=== PATIENT | male | born 1980 | race Caucasian/White ===

== ENCOUNTER 2021-02-08 08:28 | Emergency (ER) | payer BC, SELFPAY ==
--- NOTE | ~2021-02-08 | CT_ITS ---
EXAMINATION: CT brain wo con DATE: 02/08/2021 10:03 INDICATION: Dizziness. Persistent vertigo. Frontal and temporal headaches TECHNIQUE: Computed tomography (CT) of the head was performed without intravenous contrast. The mA wa s adjusted according to patient size. Iterative reconstruction technique was employed. Exam dose: 60 5.33 mGy-cm total exam DLP. COMPARISON: None FINDINGS: No intracranial mass lesion or hemorrhage or cerebrovascular accident. No midline shift or mass effect effect. Normal ventricular size. Normal ash-white matter differentiation. There is sligh t left basal ganglia calcification. No subdural or epidural hematoma. No fracture or bone destruction of the cranial vault. The mastoid air cells and included paranasal si nuses are normally developed and aerated. IMPRESSION: No significant abnormality Reviewed, dictated and finalized at [facility] Reviewed, dictated and finalized at [facility] IMPRESSION: No significant abnormality
[2021-02-08 08:35] VITALS: BP 144/94; PULSE 69; RESP 18; TEMP 37.1; O2SAT 98
--- NOTE | 2021-02-08 11:02 | ED.DIZZY ---
HPI - Dizziness General Chief Complaint: Dizziness Stated Complaint: vertigo Time Seen by Provider: 02/08/21 08:54 Source: patient Mode of arrival: ambulatory Limitations: no limitations History of Present Illness HPI Narrative: 40-year-old male Here because of dizziness Patient states that his symptoms began about 4 weeks ago, and he does not recall any inciting event or illness, there has not been any injury Generally speaking he has a very pronounced spinning and vertiginous picture which is exacerbated by some movements and by changing positions He does not have any hearing loss, double vision, or other neurologic symptoms He does occasionally have some bitemporal headaches and some occipital neck pain He has seen his primary care physician about this a couple of times The first time he had cerumen removed from both ears, and reports that it did alleviate his symptoms somewhat initially He also reported that when his ears were irrigated they made the symptoms very much worse and more intense He also saw a chiropractor who did some kind of manipulations and tried canalith repositioning maneuvers with him but that has not helped either On a second visit to his primary he was given meclizine, likewise has been ineffective, and is waiting on a referral, sounds like to ENT which he is somewhat dismayed and did not happen 2 weeks earlier Review of Systems Review of Systems: All systems reviewed & are unremarkable except as noted in HPI and below Constitutional: Constitutional: Reports no additional constitutional complaints, Denies chills, Denies fever(s) and Denies headache(s) Eyes: Eyes: Reports no additional eye complaints and Denies change in vision ENT: Reports vertigo, Denies headache(s), Reports nasal congestion and Denies sore throat Cardiovascular: Cardiovascular: Denies dyspnea Gastrointestinal: Gastrointestinal: Reports nausea Musculoskeletal: Musculoskeletal: Reports back pain, Denies deformity, Denies arthralgias, Denies joint swelling and Denies numbness Integumentary/Breasts: Skin/Breast: Denies rash and Denies wounds Neurologic: Reports vertigo, Reports dizziness, Reports headache(s), Denies focal weakness and Denies numbness Psychiatric: Psychiatric: Reports no additional psychiatric complaints Endocrine: Endocrine: Reports no additional endocrine complaints Hematologic/Lymphatic: Hematologic/Lymphatic: Reports no additional hematologic/lymphatic complaints Allergic/Immunologic: Allergic/Immunologic: Reports no additional allergic/immunologic complaints Exam Const: General: cooperative, healthy appearing, no acute distress and alert Orientation/consciousness: patient oriented x3 (alert) HENMT: Head: normal to inspection, normocephalic and atraumatic Ears: external ears normal and TM's normal bilaterally General nose exam: no epistaxis Face and sinus: sinuses nontender Other: Both TMs are normal, and hearing acuity is grossly normal as well Eyes: Conjunctivae: conjunctivae normal Pupils: Equal, round and reactive pupils present EOM: EOMs intact bilaterally Other: No nystagmus and no skew Neck: Neck: normal visual inspection, no lymphadenopathy, no meningeal signs, supple and no JVD Other: Full range of motion, no midline tenderness Resp: Effort & Inspection: normal respiratory effort and not labored Auscultation: other (BS =) Skin: General skin exam: normal color and no rashes or lesions noted Neuro: General: patient oriented x3 (alert), moves all extremities and no focal motor deficits Cranial nerves: Yes Nystagmus not present Speech: normal speech and Abnormal speech present Gait exam (Neuro): Normal gait present Course Course Emergency Course: Discussed with patient, process to date seems very reasonable, we can do a head CT scan to exclude any gross issue, trial him on a Medrol Dosepak which is a therapy that he has tolerated before without objectionable side effects, and we can re
[2021-02-08 11:20] VITALS: BP 122/85; PULSE 60; RESP 16; O2SAT 98
== END 2021-02-08 11:21 | disposition home or self-care (01) ==
PROVIDERS: Emergency Provider Emergency Medicine; PCP Internal Medicine
DX: R42 Dizziness and giddiness (principal)
CPT/HCPCS: 70450; 99284

== ENCOUNTER 2021-02-15 13:28 | Emergency (ER) | payer BC, SELFPAY ==
[2021-02-15 13:34] VITALS: BP 136/98; PULSE 68; RESP 14; TEMP 36.8; O2SAT 99
--- NOTE | 2021-02-15 14:14 | ECG_ITS ---
Measurements Intervals [place] Rate: 76 P: 43 SC: 144 QRS: 11 QRSD: 91 T: 12 QT: 366 QTc: 412 Interpretive Statements SINUS RHYTHM BORDERLINE R WAVE PROGRESSION, ANTERIOR LEADS BASELINE ARTIFACT- I, III, AVR, AVL, AVF BORDERLINE ECG Electronically Signed On 02-15-2021 17:50:10 CDT by Sergey Amezquita D.O.
[2021-02-15] MEDS: SODIUM CHLORIDE 0.9% IV 1,000 ML 999 ML IV CONT (14:31)
--- NOTE | 2021-02-15 14:40 | ED.DIZZY ---
HPI - Dizziness General Chief Complaint: Dizziness Stated Complaint: dizziness Time Seen by Provider: 02/15/21 13:45 Source: patient History of Present Illness HPI Narrative: Patient reports he has had intermittent dizziness for years however over the past 4 weeks symptoms have worsened. Reports over the past 4 weeks he has had a frontal and occipital headache which he has not been able to alleviate. Over the past week or so he is also noted dizziness described as feeling off balance and feels like the room is spinning. Today he feels like his symptoms are worse and is feeling he is going to pass out. He is currently being evaluated by ENT and was referred to vertigo testing which will be performed on Wednesday. He was also referred to a neurology to be evaluated for migraines with an appointment next week. Previously been seen in this ER for the symptoms. A CT scan and it was negative. Patient relates that he is very worried about his symptoms and does not know what to do. He denies fevers he denies focal weakness he denies cough, congestion, nausea, vomiting, chest pain Related Data Allergies Allergy/AdvReac Type Severity Reaction Status Date / Time ibuprofen Allergy Blister Verified 02/15/21 13:42 Review of Systems Review of Systems: CONSTITUTIONAL: Denies fever, chills, or sweats. EYES: Denies visual changes, redness, or discharge. ENT: Denies rhinorrhea, congestion, sore throat, or otalgia. CARDIOVASCULAR: Denies chest pain, palpitations, or edema. RESPIRATORY: Denies cough or dyspnea. GASTROINTESTINAL: Denies abdominal pain, nausea, vomiting, or diarrhea. GENITOURINARY: Denies dysuria or hematuria. SKIN: Denies rash or itching. MUSCULOSKELETAL: Denies back pain, joint pain, or myalgia. NEUROLOGIC: Reports headache and vertigo PSYCHIATRIC: Denies anxiety or depression. All systems reviewed & are unremarkable except as noted in HPI and below Exam Narrative: GENERAL: Well-appearing, well-nourished, and in no acute distress. HEAD: Normocephalic, atraumatic. EYES: PERRLA and EOMI. ENT: Nares clear, no rhinorrhea or epistaxis. Mucous membranes moist. TMs clear bilaterally EACs clear bilaterally NECK: Supple. No masses. No JVD CHEST: Clear to auscultation. No respiratory distress. No wheezes rales or rhonchi HEART: Regular rate and rhythm. No murmur heard. Normal peripheral pulses. ABDOMEN: Soft, nontender, nondistended, normal active bowel sounds. EXTREMITIES: Normal range of motion. No edema. SKIN: Warm, dry, no rash. NEURO: Cranial nerves II through XII are intact patient ambulates without difficulty no dysdiadochokinesia alert and oriented x3. PSYCH: Normal mood and affect. Course Reevaluation(s) Reevaluation #1: Patient reports feeling much improved ambulates without difficulty results and plan reviewed with patient. Patient comfortable continuing his work-up as an outpatient. Date: 02/15/21 Time: 16:07 Vital Signs Vital signs: Vital Signs Temperature 36.8 C 02/15/21 13:34 Pulse Rate 68 02/15/21 13:34 Respiratory Rate 14 02/15/21 13:34 Blood Pressure 136/98 H 02/15/21 13:34 Pulse Oximetry 99 02/15/21 13:34 Temperature 36.8 C 02/15/21 13:34 Pulse Rate 84 02/15/21 16:24 Respiratory Rate 17 02/15/21 16:24 Blood Pressure 121/67 02/15/21 16:24 Pulse Oximetry 98 02/15/21 16:24 MDM - Dizziness MDM Narrative Medical decision making narrative: H&P as above, vss, pt looks clinically well, exam without focal neurological deficits, labs clinically unremarkable, prior imaging reviewed and unremarkable, EKG clinically unremarkable, additional labs/img considered, symptomatic relief available as needed, on reevaluation pt continues to looks clinically well reports large improvement in symptoms. Suspect peripheral vertigo versus atypical migraines, dns CVA, ACS, arrhythmia, severe sepsis, electrolyte abnormality. plan to tx/monitor as op w/ pcm f/u findings/plan discussed with pt, pt agree/comfor
[2021-02-15 14:45] LABS: Basophils Absolute Auto 0.1 K/mm3 (0.0-0.1); Basophils Percent Auto 0.7 % (0.2-1.2); Eosinophils Absolute Auto 0.1 K/mm3 (0-0.3); Eosinophils Percent Auto 1.4 % (0-4.4); Hematocrit 49.6 % (42.0-52.0); Immature Granulocyte Absolute 0.02 K/mm3 (0.00-0.031); Immature Granulocyte Percent A 0.2 % (0-0.5); Lymphocytes Absolute Auto 1.55 K/mm3 (0.9-3.2); Lymphocytes Percent Auto 19.1 % (18.3-44.2); Mean Corpuscular HGB Conc 34.3 g/dl (32-36); Mean Corpuscular Hemoglobin 29.9 pg (26-34); Mean Corpuscular Volume 87.3 fl (80-100); Mean Platelet Volume 9.5 fl (7.4-10.4); Monocytes Absolute Auto 0.4 K/mm3 (0.1-0.6); Neutrophils Percent Auto 73.6 % (45.5-73.1); Platelet Count Result 313 k/mm3 (150-375); Red Blood Count 5.68 M/mm3 (4.6-6.20); Red Cell Distribution Width 12.6 % (11.5-14.5); White Blood Count 8.1 K/mm3 (4.5-10.0)
[2021-02-15 14:58] LABS: Alanine Aminotransferase 20 U/L (4-50); Albumin Level 4.7 g/dL (3.5-5.1); Alkaline Phosphatase 54 U/L (38-126); Anion Gap 8 mmol/L (8-16); Aspartate Amino Transferase 23 U/L (17-59); Bilirubin,Total 0.6 mg/dL (0.2-1.3); Blood Urea Nitrogen 14 mg/dL (9-20); Calcium 9.3 mg/dL (8.4-10.2); Carbon Dioxide 29 mmol/L (22-30); Chloride 102 mmol/L (98-107); Estimated CRCL calculation 112 ml/min; Estimated Glomerular Filt Rate > 60; Glucose 105 mg/dL (65-110); Potassium 3.8 mmol/L (3.4-5.0); Sodium 139 mmol/L (137-145)
[2021-02-15] MEDS: PROCHLORPERAZINE EDISYLATE 10 MG/2 ML VIAL IV PUSH (15:10)
[2021-02-15 16:24] VITALS: BP 121/67; PULSE 84; RESP 17; O2SAT 98
== END 2021-02-15 16:28 | disposition home or self-care (01) ==
PROVIDERS: Emergency Provider Emergency Medicine; PCP Internal Medicine
DX: R42 Dizziness and giddiness (principal); R51.9 Headache, unspecified; R94.31 Abnormal electrocardiogram [ECG] [EKG]
CPT/HCPCS: 36415; 80053; 85025; 93005; 96361; 96374; 96375; 99284; J0131; J0780; J7030